=== PATIENT | born 2000 ===

== ENCOUNTER 2023-08-12 23:10 | Outpatient (CLI) | payer SELFPAY ==
[2023-08-12 23:59] LABS: ALT 25 U/L; AST 17 U/L; Albumin 3.7 g/dL; Alkaline Phosphatase 64 U/L; Bilirubin, Direct < 0.1 mg/dL; Bilirubin, Total 0.2 mg/dL; Total Protein 7.8 g/dL
[2023-08-14 10:11] LABS: HIV-1/2 Ag & Ab Screen Negative (Negative)
[2023-08-16 10:52] LABS: HBs Antibody, Quant 498.9 mIU/mL (See Note); Hepatitis B Surface Ab Positive (See Note)
[2023-08-16 11:06] LABS: Hepatitis B Surface Ag Negative (Negative)
[2023-08-16 11:55] LABS: Hepatitis C Ab w Rflx HCV PCR Negative (Negative)
== END 2023-08-12 23:11 | disposition home or self-care (01) ==
DX: W46.0XXA Contact with hypodermic needle, initial encounter (principal); T14.8XXA Other injury of unspecified body region, initial encounter
CPT/HCPCS: 80076; 86706; 86803; 87340; 87389